=== PATIENT | female | born 1955 | race Two or more races ===

== ENCOUNTER 2023-11-10 12:56 | Emergency (ER) | payer MEDICARE ==
--- NOTE | 2023-11-10 13:06 | ED ---
General Adult HPI - General Stated complaint: Mental health eval Time Seen by Provider: 11/10/23 13:00 Source: patient, RN notes reviewed, old records reviewed - History of Present Illness Initial comments: This is a 68-year-old female who presents to the emergency department because she made some suicidal comments according to staff at the [facility] home. Patient states she does not recall saying that today she states she may have said that months ago but not today. Patient's 2 months ago and she states she has been depressed but she does not feel like she herself because she has children. But according to the paramedics they were told that she made comments about jumping out of the window today. Patient denies any physical complaints today. Patient denies any fever chills or cough patient denies headache patient has numbness weakness. Patient has any chest pain palpitations or difficulty breathing. Patient has any abdominal pain. - Related Data Home Medications Medication Instructions Recorded Confirmed Atorvastatin [Lipitor] 20 mg PO HS 11/10/23 11/10/23 FLUoxetine HCL [PROzac] 20 mg PO DAILY 11/10/23 11/10/23 Losartan Potassium [Cozaar] 100 mg PO DAILY 11/10/23 11/10/23 Mirtazapine [Remeron] 30 mg PO HS 11/10/23 11/10/23 OLANZapine [ZyPREXA] 2.5 mg PO HS 11/10/23 11/10/23 Venlafaxine HCl [Effexor XR] 150 mg PO DAILY 11/10/23 11/10/23 Allergies Allergy/AdvReac Type Severity Reaction Status Date / Time No Known Allergies Allergy Verified 11/10/23 17:21 Review of Systems ROS Statement: Those systems with pertinent positive or pertinent negative responses have been documented in the HPI. ROS Other: All systems not noted in ROS Statement are negative. General Exam - General Exam Comments Initial Comments: GENERAL: Patient is well-developed and well-nourished. Patient is nontoxic and well- hydrated and is in no acute distress. ENT: Neck is soft and supple. No significant lymphadenopathy is noted. Oropharynx is clear. Moist mucous membranes. Neck has full range of motion without eliciting any pain. EYES: The sclera were anicteric and conjunctiva were pink and moist. Extraocular movements were intact and pupils were equal round and reactive to light. Ey elids were unremarkable. PULMONARY: Unlabored respirations. Good breath sounds bilaterally. No audible rales rhonchi or wheezing was noted. CARDIOVASCULAR: There is a regular rate and rhythm without any murmurs gallops or rubs. ABDOMEN: Soft and nontender with normal bowel sounds. SKIN: Skin is clear with no lesions or rashes and otherwise unremarkable. NEUROLOGIC: Patient is alert and oriented x3. Cranial nerves II through XII are grossly intact. Motor and sensory are also intact. Normal speech, volume and content. Symmetrical smile. MUSCULOSKELETAL: Normal extremities with adequate strength and full range of motion. No lower extremity swelling or edema. No calf tenderness. LYMPHATICS: No significant lymphadenopathy is noted PSYCHIATRIC: Patient denies any suicidal ideations however EMS states that she made comments to people at the [facility] Course Vital Signs 11/10/23 13:19 Temperature 98.4 F Pulse Rate 84 Respiratory 12 Rate Blood Pressure 135/80 O2 Sat by Pulse 97 Oximetry Medical Decision Making - Medical Decision Making Was pt. sent in by a medical professional or institution (, PA, DIESEL ENGINE TESTER, urgent care, hospital, or longterm...) When possible be specific @ -No Did you speak to anyone other than the patient for history (EMS, parent, family, police, friend...)? What history was obtained from this source @ -EPS gave us the report from the scene and what people there were saying. Did you review nursing and triage notes (agree or disagree)? Why? @ -I reviewed and agree with nursing and triage notes Were old charts reviewed (outside hosp., previous admission, EMS record, old EKG, old radiological studies, urgent care reports/EKG's, longterm records)? Report findings @ -No old charts were reviewed Differential Diagnosis (chest pain, altered mental status, abdominal pain women, abdominal pain men, vaginal bleeding, weakness, fever, dyspnea, syncope, headache, dizziness, GI bleed, back pain, seizure, CVA, palpatations, mental health, musculoskeletal)? @ -Differential Mental Health Depression, anxiety, bipolar, psychosis, schizophrenia, borderline personality, situational depression, adjustment disorder, behavioral disorder, brain tumor, malingering, substance abuse, encephalopathy, medication reaction, dementia, hypothyroidism, degenerative neurologic disorder, lupus.... This is not meant to be all-inclusive list EKG interpreted by me (3pts min.). @ -As above X-rays interpreted by me (1pt min.). @ -None done CT interpreted by me (1pt min.). @ -None done U/S interpreted by me (1pt. min.). @ -None done What testing was considered but not performed or refused? (CT, X-rays, U/S, labs)? Why? @ -None What meds were considered but not given or refused? Why? @ -None Did you discuss the management of the patient with other professionals (professionals i.e. , PA, DIESEL ENGINE TESTER, lab, RT, psych nurse, social sciences instructor, lead pl sql developer, t eacher, equal opportunity officer, family service caseworker)? Give summary @ -EPS evaluated the patient and in consultation with the psychiatrist determined the patient go home. Daughter showed up and was in agreement with this plan as was the patient. Was smoking cessation discussed for >3mins.? @ -No Was critical care preformed (if so, how long)? @ -No Were there social determinants of health that impacted care today? How? (Homelessness, low income, unemployed, alcoholism, drug addiction, transportation, low edu. Level, literacy, decrease access to med. care, assisted, rehab)? @ -No Was there de-escalation of care discussed even if they declined (Discuss DNR or withdrawal of care, Hospice)? DNR status @ -No What co-morbidities impacted this encounter? (DM, HTN, Smoking, COPD, CAD, Cancer, CVA, ARF, Chemo, Hep., AIDS, mental health diagnosis, sleep apnea, morbid obesity)? @ -None Was patient admitted / discharged? Hospital course, mention meds given and route, prescriptions, significant lab abnormalities, going to OR and other pertinent info. @ -Patient denied being suicidal at all time she was here and EPS the daughter and the psychiatrist all were in agreement with the patient being discharged home Undiagnosed new problem with uncertain prognosis? @ -No Drug Therapy requiring intensive monitoring for toxicity (Heparin, Nitro, Insulin, Cardizem)? @ -No Were any procedures done? @ -No Diagnosis/symptom? @ -Situational depression Acute, or Chronic, or Acute on Chronic? @ -Acute Uncomplicated (without systemic symptoms) or Complicated (systemic symptoms)? @ -Uncomplicated Side effects of treatment? @ -No Exacerbation, Progression, or Severe Exacerbation? @ -No Poses a threat to life or bodily function? How? (Chest pain, [place], [place], pneumonia, PE, COPD, DKA, ARF, appy, cholecystitis, CVA, Diverticulitis, Homicidal, Suicidal, threat to staff... and all critical care pts) @ -No - Lab Data Lab Results 11/10/23 11/10/23 Range/Units 14:40 14:40 Urine Color Colorless Urine Appearance Clear (Clear) Urine pH 7.5 (5.0-8.0) Ur Specific [place] 1.015 (1.001-1.035) Urine Protein Negative (Negative) Urine Glucose (UA) Negative (Negative) Urine Ketones Negative (Negative) Urine Blood Negative (Negative) Urine Nitrite Negative (Negative) Urine Bilirubin Negative (Negative) Urine Urobilinogen <2.0 (<2.0) mg/dL Ur Leukocyte Esterase Trace H (Negative) Urine RBC 1 (0-5) /hpf Urine WBC 4 (0-5) /hpf Ur Squamous Epith Cells <1 (0-4) /hpf Urine Mucus Rare H (None) /hpf Urine Opiates Screen Not Detected (NotDetected) Ur Oxycodone Screen Not Detected (NotDetected) Urine Methadone Screen Not Detected (NotDetected) Ur Barbiturates Screen Not Detected (NotDetected) U Tricyclic Antidepress Not Detected (NotDetected) Ur Phencyclidine Scrn Not Detected (NotDetected) Ur Amphetamines Screen Not Detected (NotDetected) U Methamphetamines Scrn Not Detected (NotDetected) U Benzodiazepines Scrn Not Detected (NotDetected) Urine Cocaine Screen Not Detected (NotDetected) U Marijuana (THC) Screen Not Detected (NotDetected) Disposition Clinical Impression: Situational depression Disposition: HOME SELF-CARE Condition: Good Instructions (If sedation given, give patient instructions): Depression (ED) Is patient prescribed a controlled substance at d/c from ED?: No Referrals: None,Stated [REFERRING] - 1-2 days Time of Disposition: 18:22
[2023-11-10 13:24] VITALS: TEMP 98.4
[2023-11-10 14:54] LABS: Amphetamine Screen,Urine Not Detected (NotDetected); Barbiturate Screen,Urine Not Detected (NotDetected); Benzodiazepines Screen,Urine Not Detected (NotDetected); Cocaine Screen,Urine Not Detected (NotDetected); Methadone Screen, Urine Not Detected (NotDetected); Opiate Screen,Urine Not Detected (NotDetected); Oxycodone Screen, Urine Not Detected (NotDetected); Phencyclidine Screen,Urine Not Detected (NotDetected); Tricyclic Antidepressant,Urine Not Detected (NotDetected); Urn Cannabinoid Scrn Not Detected (NotDetected)
[2023-11-10 16:50] LABS: Appearance,Urine Clear (Clear); Bilirubin,Urine Negative (Negative); Blood,Urine Negative (Negative); Color,Urine Colorless; Glucose,Urine (UA) Negative (Negative); Ketones,Urine Negative (Negative); Leukocyte Esterase,Urine Trace (Negative); Mucus,Urine Rare /hpf; Nitrite,Urine Negative (Negative); PH, Urine 7.5 (5.0-8.0); Protein,Urine Negative (Negative); RBC,Urine 1 /hpf (0-5); Specific Gravity,Urine 1.015 (1.001-1.035); Squamous Epithelial Cell,Urine <1 /hpf (0-4); Urobilinogen,Urine <2.0 mg/dL (<2.0); WBC,Urine 4 /hpf (0-5)
[2023-11-10 18:45] VITALS: BP 178/94; PULSE 103; RESP 14
== END 2023-11-10 18:37 | disposition home or self-care (01) ==
LOC: EC 12:56
DX: F43.21 Adjustment disorder with depressed mood (principal)
CPT/HCPCS: 80306; 81001; 82075; 99285

== ENCOUNTER 2024-04-22 20:40 | Observation (INO) | payer MEDICARE ==
--- NOTE | 2024-04-22 21:17 | ED ---
Syncope HPI - General Chief Complaint: Syncope Stated Complaint: AMS Time Seen by Provider: 04/22/24 20:43 Source: EMS, RN notes reviewed, old records reviewed Mode of arrival: EMS Limitations: altered mental status - History of Present Illness Initial Comments: This is a 69-year-old female to the ER for evaluation of altered mental status with syncopal versus near syncopal event in the shower today. Patient is minimally responsive on arrival to the ER per staff symptoms have been improving. She presents by EMS history obtained from EMS and chart MD Complaint: loss of consciousness, felt faint, almost passed out, collapsed -: hour(s) Prodromal Symptoms: lightheaded Witnessed: yes - by bystander Injuries Sustained Associated with Event: None Current Symptoms: lightheaded History: previous syncopal episode Context: during exertion (During a shower) Treatments Prior to Arrival: none - Related Data Home Medications Medication Instructions Recorded Confirmed Atorvastatin [Lipitor] 20 mg PO HS 11/10/23 04/23/24 Losartan Potassium [Cozaar] 100 mg PO DAILY 11/10/23 04/23/24 Mirtazapine [Remeron] 30 mg PO HS 11/10/23 04/23/24 Venlafaxine HCl [Effexor XR] 150 mg PO DAILY 11/10/23 04/23/24 Cyanocobalamin (Vitamin B-12) 1,000 mcg PO DAILY 04/23/24 04/23/24 [Vitamin B-12] Docusate [Colace] 100 mg PO DAILY 04/23/24 04/23/24 LORazepam [Ativan] 1 mg PO BID PRN 04/23/24 04/23/24 Melatonin 5 mg PO HS 04/23/24 04/23/24 OLANZapine [ZyPREXA] 5 mg PO HS 04/23/24 04/23/24 Venlafaxine HCl ER [Effexor XR] 75 mg PO DAILY 04/23/24 04/23/24 Allergies Allergy/AdvReac Type Severity Reaction Status Date / Time No Known Allergies Allergy Verified 04/23/24 07:23 Review of Systems ROS Statement: Those systems with pertinent positive or pertinent negative responses have been documented in the HPI. ROS Other: All systems not noted in ROS Statement are negative. Past Medical History Past Medical History: Hypertension Additional Past Medical History / Comment(s): Aphasia Past Psychological History: Anxiety, Depression General Exam General appearance: alert, in no apparent distress Head exam: Present: atraumatic, normocephalic, normal inspection Eye exam: Present: normal appearance, PERRL, EOMI. Absent: scleral icterus, conjunctival injection, periorbital swelling ENT exam: Present: normal exam, mucous membranes moist Neck exam: Present: normal inspection. Absent: tenderness, meningismus, lymphadenopathy Respiratory exam: Present: normal lung sounds bilaterally. Absent: respiratory distress, wheezes, rales, rhonchi, stridor Cardiovascular Exam: Present: regular rate, normal rhythm, normal heart sounds. Absent: systolic murmur, diastolic murmur, rubs, gallop, clicks GI/Abdominal exam: Present: soft, normal bowel sounds. Absent: distended, tende rness, guarding, rebound, rigid Extremities exam: Present: normal inspection, full ROM, normal capillary refill. Absent: tenderness, pedal edema, joint swelling, calf tenderness Back exam: Present: normal inspection Neurological exam: Present: alert, oriented X3, CN II-XII intact Psychiatric exam: Present: normal affect, normal mood Skin exam: Present: warm, dry, intact, normal color. Absent: rash Course Vital Signs 04/22/24 04/23/24 04/23/24 20:45 00:18 02:05 Temperature 97.8 F Pulse Rate 87 79 75 Respiratory 16 16 16 Rate Blood Pressure 149/82 133/74 105/61 O2 Sat by Pulse 95 95 95 Oximetry 04/23/24 04/23/24 04/23/24 06:56 07:49 08:30 Temperature 98.1 F 98.5 F Pulse Rate 76 83 77 Respiratory 20 15 16 Rate Blood Pressure 148/76 158/83 146/77 O2 Sat by Pulse 96 95 97 Oximetry 04/23/24 17:01 Temperature 98.4 F Pulse Rate 76 Respiratory 16 Rate Blood Pressure 166/82 O2 Sat by Pulse 98 Oximetry - Reevaluation(s) Reevaluation #1: 04/22/24 21:26 Medical record is reviewed Reevaluation #2: 04/22/24 21:26 Symptoms sinus a Reevaluation #3: 04/22/24 22:41 Patient is informed of results and questions answered Reevaluation #4: Was pt. sent in by a medical professional or institution (, PA, VIDEO GAME DESIGNER, urgent care, hospital, or shelter...) When possible be specific @ -no Did you speak to anyone other than the patient for history (EMS, parent, family, police, friend...)? What history was obtained from this source @ -no Did you review nursing and triage notes (agree or disagree)? Why? @ -agree Are old charts reviewed (outside hosp., previous admission, EMS record, old EKG, old radiological studies, urgent care reports/EKG's, shelter records)? Report findings @ -yes Differential Diagnosis (chest pain, altered mental status, abdominal pain women, abdominal pain men, vaginal bleeding, weakness, fever, dyspnea, syncope, headache, dizziness, GI bleed, back pain, seizure, CVA, palpatations, mental health, musculoskeletal)? @ -prior EKG interpreted by me (3pts min.). @ -yes X-rays interpreted by me (1pt min.). @ -yes negative for acute disease CT interpreted by me (1pt min.). @ -no U/S interpreted by me (1pt. min.). @ -no What testing was considered but not performed or refused? (CT, X-rays, U/S, labs)? Why? @ -none What meds were considered but not given or refused? Why? @ -none Did you discuss the management of the patient with other professionals (professionals i.e. CARLITOS Davison, VIDEO GAME DESIGNER, lab, RT, psych nurse, vp digital marketing social media and crm, engineering clerk, teacher, professional security officer, case supervisor)? Give summary @ -no Was smoking cessation discussed for >3mins.? @ -no Was critical care preformed (if so, how long)? @ -no Were there social determinants of health that impacted care today? How? (Homelessness, low income, unemployed, alcoholism, drug addiction, transportation, low edu. Level, literacy, decrease access to med. care, group home, rehab)? @ -none Was there de-escalation of care discussed even if they declined (Discuss DNR or withdrawal of care, Hospice)? DNR status @ -no What co-morbidities impacted this encounter? (DM, HTN, Smoking, COPD, CAD, Cancer, CVA, ARF, Chemo, Hep., AIDS, mental health diagnosis, sleep apnea, morbid obesity)? @ -none Was patient admitted / discharged? Hospital course, mention meds given and route, prescriptions, significant lab abnormalities, going to OR and other pert inent info. @ - 69 Male who will be admitted for psychiatric evaluation secondary to syncope vasovagal syncope history of syncope Admitted syncope Undiagnosed new problem with uncertain prognosis? @ -no Drug Therapy requiring intensive monitoring for toxicity (Heparin, Nitro, Insulin, Cardizem)? @ -no Were any procedures done? @ -no Diagnosis/symptom? @ - Acute, or Chronic, or Acute on Chronic? @ -Acute Uncomplicated (without systemic symptoms) or Complicated (systemic symptoms)? @ -Complicated Side effects of treatment? @ -no Exacerbation, Progression, or Severe Exacerbation? @ -exacerbation Poses a threat to life or bodily function? How? (Chest pain, [place], [place], pneumonia, PE, COPD, DKA, ARF, appy, cholecystitis, CVA, Diverticulitis, Homicidal, Suicidal, threat to staff... and all critical care pts) @ -yes Reevaluation #5: Differential Altered Mental Status: Hypoglycemia, DKA, hypercapnia, ETOH, overdose, CO poisoning, trauma, myxedema coma, HTN encephalopathy, infection, encephalitis, psychosis, intercranial hemorrhage, hepatic encephalopathy, meningitis, CVA, this is not meant to be an all-inclusive list - Consultations Consultation #1: Spoke with admitting physicians who agreed to admit this patient EKG Findings - EKG Comments: EKG Findings:: EKG Is sinus 88 TX 194 QRS 84 QTc 423 - EKG Results: EKG: interpreted by RACHID Medical Decision Making - Medical Decision Making 69 Male who will be admitted for psychiatric evaluation secondary to syncope vasovagal syncope history of syncope - Lab Data Result diagrams: 04/23/24 08:33 04/23/24 08:33 Lab Results 04/22/24 04/22/24 04/22/24 Range/Units 21:20 21:20 21:20 WBC 8.0 (3.8-10.6) k/uL RBC 3.85 (3.80-5.40) m/uL Hgb 11.6 (11.4-16.0) gm/dL Hct 35.7 (34.0-46.0) % MCV 92.5 (80.0-100.0) fL MCH 30.2 (25.0-35.0) pg MCHC 32.6 (31.0-37.0) g/dL RDW 12.5 (11.5-15.5) % Plt Count 257 (150-450) k/uL MPV 7.3 Neutrophils % 69 % Lymphocytes % 18 % Monocytes % 6 % Eosinophils % 5 % Basophils % 0 % Neutrophils # 5.6 (1.3-7.7) k/uL Lymphocytes # 1.5 (1.0-4.8) k/uL Monocytes # 0.5 (0-1.0) k/uL Eosinophils # 0.4 (0-0.7) k/uL Basophils # 0.0 (0-0.2) k/uL PT 10.6 (10.0-12.5) sec INR 1.0 (<1.2) APTT 22.3 (22.0-30.0) sec Sodium 137 (137-145) mmol/L Potassium 3.7 (3.5-5.1) mmol/L Chloride 109 H (98-107) mmol/L Carbon Dioxide 25 (22-30) mmol/L Anion Gap 3 mmol/L BUN 20 H (7-17) mg/dL Creatinine 0.94 (0.52-1.04) mg/dL Est GFR (CKD-EPI)AfAm 71 (>60 ml/min/1.73 sqM) Est GFR (CKD-EPI)NonAf 61 (>60 ml/min/1.73 sqM) Glucose 119 H (74-99) mg/dL Plasma Lactic Acid Price (0.7-2.0) mmol/L Calcium 8.7 (8.4-10.2) mg/dL Phosphorus 2.9 (2.5-4.5) mg/dL Magnesium 1.8 (1.6-2.3) mg/dL Total Bilirubin 0.4 (0.2-1.3) mg/dL AST 24 (14-36) U/L ALT 19 (4-34) U/L Alkaline Phosphatase 107 (38-126) U/L Troponin I (0.000-0.034) ng/mL NT-Pro-B Natriuret Pep 21 pg/mL Total Protein 6.0 L (6.3-8.2) g/dL Albumin 3.6 (3.5-5.0) g/dL 04/22/24 04/22/24 Range/Units 21:20 21:20 WBC (3.8-10.6) k/uL RBC (3.80-5.40) m/uL Hgb (11.4-16.0) gm/dL Hct (34.0-46.0) % MCV (80.0-100.0) fL MCH (25.0-35.0) pg MCHC (31.0-37.0) g/dL RDW (11.5-15.5) % Plt Count (150-450) k/uL MPV Neutrophils % % Lymphocytes % % Monocytes % % Eosinophils % % Basophils % % Neutrophils # (1.3-7.7) k/uL Lymphocytes # (1.0-4.8) k/uL Monocytes # (0-1.0) k/uL Eosinophils # (0-0.7) k/uL Basophils # (0-0.2) k/uL PT (10.0-12.5) sec INR (<1.2) APTT (22.0-30.0) sec Sodium (137-145) mmol/L Potassium (3.5-5.1) mmol/L Chloride (98-107) mmol/L Carbon Dioxide (22-30) mmol/L Anion Gap mmol/L BUN (7-17) mg/dL Creatinine (0.52-1.04) mg/dL Est GFR (CKD-EPI)AfAm (>60 ml/min/1.73 sqM) Est GFR (CKD-EPI)NonAf (>60 ml/min/1.73 sqM) Glucose (74-99) mg/dL Plasma Lactic Acid Price 1.7 (0.7-2.0) mmol/L Calcium (8.4-10.2) mg/dL Phosphorus (2.5-4.5) mg/dL Magnesium (1.6-2.3) mg/dL Total Bilirubin (0.2-1.3) mg/dL AST (14-36) U/L ALT (4-34) U/L Alkaline Phosphatase (38-126) U/L Troponin I <0.012 (0.000-0.034) ng/mL NT-Pro-B Natriuret Pep pg/mL Total Protein (6.3-8.2) g/dL Albumin (3.5-5.0) g/dL - Radiology Data Radiology results: report reviewed (CT brain is negative for acute disease), image reviewed Disposition Clinical Impression: Syncope due to orthostatic hypotension, Vasovagal syncope, Dehydration, AMS (altered mental status), Weakness, Psychosis Disposition: ADMITTED IP TO THIS HOSP Condition: Fair Is patient prescribed a controlled substance at d/c from ED?: No
[2024-04-22 21:50] LABS: Basophils % (A) 0 %; Eosinophils # (A) 0.4 k/uL (0-0.7); Eosinophils % (A) 5 %; HCT 35.7 % (34.0-46.0); HGB 11.6 gm/dL (11.4-16.0); Lymphocytes # (A) 1.5 k/uL (1.0-4.8); Lymphocytes % (A) 18 %; MCH 30.2 pg (25.0-35.0); MCHC 32.6 g/dL (31.0-37.0); MCV 92.5 fL (80.0-100.0); Mean Platelet Volume 7.3; Monocytes # (A) 0.5 k/uL (0-1.0); Monocytes % (A) 6 %; Neutrophils # (A) 5.6 k/uL (1.3-7.7); Neutrophils % (A) 69 %; Platelet Count 257 k/uL (150-450); RBC 3.85 m/uL (3.80-5.40); RDW 12.5 % (11.5-15.5)
[2024-04-22 22:05] LABS: ALT 19 U/L (4-34); AST 24 U/L (14-36); African American GFR (CKD) 71 (>60 ml/min/1.73 sqM); Albumin 3.6 g/dL (3.5-5.0); Alkaline Phosphatase 107 U/L (38-126); Anion Gap 3 mmol/L; Blood Urea Nitrogen 20 mg/dL (7-17); Calcium 8.7 mg/dL (8.4-10.2); Carbon Dioxide 25 mmol/L (22-30); Chloride 109 mmol/L (98-107); Glucose 119 mg/dL (74-99); Magnesium 1.8 mg/dL (1.6-2.3); Non-African American GFR(CKD) 61 (>60 ml/min/1.73 sqM); Phosphorus 2.9 mg/dL (2.5-4.5); Potassium 3.7 mmol/L (3.5-5.1); Sodium 137 mmol/L (137-145); Total Bilirubin 0.4 mg/dL (0.2-1.3)
[2024-04-22 22:12] LABS: NT-Pro-B-Type Natriuretic Pept 21 pg/mL; Partial Thromboplastin Time 22.3 sec (22.0-30.0); Prothrombin Time 10.6 sec (10.0-12.5)
[2024-04-22] MEDS: SODIUM CHLORIDE 0.9% 1,000 ML IV STA (22:15)
[2024-04-22] MEDS ORDERED: MORPHINE SULFATE 4 MG/ML SYRINGE IV PRN (22:35)
[2024-04-22] MEDS ORDERED: ONDANSETRON 4 MG/2 ML VIAL IVP PRN (22:35)
[2024-04-22] MEDS ORDERED: NALOXONE 0.4 MG/ML 1 ML VIAL IV PRN (22:35)
--- NOTE | 2024-04-22 23:53 | CT ---
EXAM: CT Head Without Intravenous Contrast CLINICAL HISTORY: weakness TECHNIQUE: Axial computed tomography images of the head/brain without intravenous contrast. CTDI is 49.1 mGy and DLP is 1121 mGy-cm. This CT exam was performed using one or more of the following dose reduction techniques: automated exposure control, adjustment of the mA and/or kV according to patient size, and/or use of iterative reconstruction technique. COMPARISON: No relevant prior studies available. FINDINGS: Brain: Unremarkable. No acute intracranial hemorrhage, edema or abnormal mass-effect. Ventricles: Unremarkable. No ventriculomegaly. Bones/joints: Unremarkable. No acute fracture. Soft tissues: Unremarkable. Sinuses: Unremarkable as visualized. No acute sinusitis. Mastoid air cells: Unremarkable as visualized. No mastoid effusion. IMPRESSION: No acute or focal intracranial findings.
[2024-04-23] MEDS: SODIUM CHLORIDE 0.9% 1,000 ML IV SCH (00:16)
[2024-04-23] MEDS: PANTOPRAZOLE 40 MG/10 ML VIAL IV SCH (08:30)
[2024-04-23 08:40] VITALS: RESP 16
[2024-04-23 09:20] LABS: Basophils % (A) 0 %; Eosinophils # (A) 0.3 k/uL (0-0.7); Eosinophils % (A) 3 %; HCT 38.3 % (34.0-46.0); HGB 12.5 gm/dL (11.4-16.0); Lymphocytes # (A) 1.2 k/uL (1.0-4.8); Lymphocytes % (A) 14 %; MCH 30.2 pg (25.0-35.0); MCHC 32.7 g/dL (31.0-37.0); MCV 92.4 fL (80.0-100.0); Mean Platelet Volume 7.7; Monocytes # (A) 0.3 k/uL (0-1.0); Monocytes % (A) 3 %; Neutrophils # (A) 6.8 k/uL (1.3-7.7); Neutrophils % (A) 79 %; Platelet Count 282 k/uL (150-450); RBC 4.15 m/uL (3.80-5.40); WBC 8.7 k/uL (3.8-10.6)
[2024-04-23 09:41] LABS: ALT 18 U/L (4-34); AST 22 U/L (14-36); African American GFR (CKD) 85 (>60 ml/min/1.73 sqM); Albumin 3.5 g/dL (3.5-5.0); Alkaline Phosphatase 101 U/L (38-126); Anion Gap 5 mmol/L; Blood Urea Nitrogen 17 mg/dL (7-17); Calcium 8.7 mg/dL (8.4-10.2); Carbon Dioxide 26 mmol/L (22-30); Chloride 110 mmol/L (98-107); Glucose 80 mg/dL (74-99); Lipase 71 U/L (23-300); Non-African American GFR(CKD) 74 (>60 ml/min/1.73 sqM); Phosphorus 3.8 mg/dL (2.5-4.5); Potassium 4.2 mmol/L (3.5-5.1); Sodium 141 mmol/L (137-145); Total Bilirubin 0.5 mg/dL (0.2-1.3)
[2024-04-23 09:50] LABS: Appearance,Urine Cloudy (Clear); Bacteria,Urine Rare /hpf; Bilirubin,Urine Negative (Negative); Blood,Urine Trace (Negative); Color,Urine Colorless; Glucose,Urine (UA) Negative (Negative); Ketones,Urine Negative (Negative); Leukocyte Esterase,Urine Large (Negative); Mucus,Urine Rare /hpf; Nitrite,Urine Negative (Negative); PH, Urine 6.5 (5.0-8.0); Protein,Urine Trace (Negative); RBC,Urine 11 /hpf (0-5); Specific Gravity,Urine 1.015 (1.001-1.035); Squamous Epithelial Cell,Urine 4 /hpf (0-4); Urobilinogen,Urine <2.0 mg/dL (<2.0); WBC,Urine 168 /hpf (0-5)
--- NOTE | 2024-04-23 11:08 | CA ---
Transthoracic Echo Report Name: Lesa Corea Age: 69 Gender: F : 1955 Exam Date: 04/23/2024 09:05 Exam Location: [facility] Ht (in): 64 Wt (lb): 155 Ordering Physician: Debbie Middleton Attending/Referring Phys: [id number], Emi Director Service Tori Perla RDCS Procedure CPT: Indications: Syncope Cardiac Hx: Technical Quality: Fair Contrast 1: Total Dose (mL): Contrast 2: Total Dose (mL): MEASUREMENTS (Male / Female) Normal Values 2D ECHO LV Diastolic Diameter PLAX 5.0 cm 4.2 - 5.9 / 3.9 - 5.3 cm LV Systolic Diameter PLAX 2.7 cm IVS Diastolic Thickness 0.9 cm 0.6 - 1.0 / 0.6 - 0.9 cm LVPW Diastolic Thickness 1.0 cm 0.6 - 1.0 / 0.6 - 0.9 cm LV Relative Wall Thickness 0.4 RV Internal Dim ED PLAX 1.9 cm LA Systolic Diameter LX 3.4 cm 3.0 - 4.0 / 2.7 - 3.8 cm LV Diastolic Volume MOD BP 60.2 cm??? 67 - 155 / 56 - 104 cm??? LV Systolic Volume MOD BP 20.2 cm??? - 58 / 19 - 49 cm??? LV Ejection Fraction MOD BP 66.5 % >= 55 % LV Cardiac Index MOD BP 1623.2 cm???/min???m??? LV Diastolic Volume MOD 4C 63.4 cm??? LV Systolic Volume MOD 4C 18.4 cm??? LV Ejection Fraction MOD 4C 71.0 % LV Cardiac Index MOD 4C 1828.4 cm???/min???m??? LV Diastolic Length 4C 7.0 cm LV Systolic Length 4C 4.7 cm LV Diastolic Volume MOD 2C 54.6 cm??? LV Systolic Volume MOD 2C 20.5 cm??? LV Ejection Fraction MOD 2C 62.4 % LV Cardiac Index MOD 2C 1385.6 cm???/min???m??? LV Diastolic Length 2C 6.5 cm LV Systolic Length 2C 5.1 cm LA Volume 49.7 cm??? 18 - 58 / 22 - 52 cm??? LA Volume Index 27.6 cm???/m??? 16 - 28 cm???/m??? M-MODE Aortic Root Diameter MM 2.8 cm LA Systolic Diameter MM 2.9 cm LA Ao Ratio MM 1.0 AV Cusp Separation MM 2.0 cm DOPPLER MV Area PHT 2.7 cm??? Mitral E Point Velocity 61.3 cm/s Mitral A Point Velocity 79.0 cm/s Mitral E to A Ratio 0.8 MV Deceleration Time 282.0 ms TR Peak Velocity 200.9 cm/s TR Peak Gradient 16.1 mmHg FINDINGS Left Ventricle Left ventricular ejection fraction is estimated at 55-60 %. Normal Left ventricular size, wall thickness, systolic function with no obvious regional wall motion abnormalities. Right Ventricle Normal right ventricular size and function. Right ventricular systolic pressure within normal limits. Right Atrium Mild right atrial dilatation. Left Atrium Mild left atrial dilatation. Mitral Valve Structurally normal mitral valve. Mild mitral regurgitation. No mitral stenosis. Aortic Valve Trileaflet aortic valve. Trace aortic regurgitation. No aortic stenosis. Tricuspid Valve Structurally normal tricuspid valve. Mild tricuspid regurgitation. No tricuspid stenosis. Pulmonic Valve Structurally normal pulmonic valve. Trace pulmonic regurgitation. No pulmonic stenosis. Pericardium No pericardial or pleural effusion. Aorta Normal size aortic root and proximal ascending aorta. CONCLUSIONS Diagnosis: Syncope Preserved LV size and systolic function, no regional wall motion abnormalities Normal RV size and function Mild biatrial enlargement No significant valvular abnormalities Previewed by: Dr. Andry Bean MD (Electronically Signed) Final Date: 23 April 2024 11:07
[2024-04-23] MEDS ORDERED: LORazepam 1 MG TAB PO PRN (11:29)
[2024-04-23] MEDS: LOSARTAN 50 MG TAB PO SCH (12:31)
[2024-04-23] MEDS: DOCUSATE 100 MG CAP PO SCH (12:31)
[2024-04-23] MEDS: VENLAFAXINE HCL ER 150 MG CAP PO SCH (12:31)
[2024-04-23] MEDS: VENLAFAXINE HCL ER 75 MG CAP PO SCH (12:31)
--- NOTE | 2024-04-23 12:32 | P.CRDCN ---
History of Present Illness Consult date: 04/23/24 Reason for Consult (text): Syncope History of present illness: HISTORY OF PRESENT ILLNESS: This is a 69-year-old female with past medical history significant for hypertension, hyperlipidemia, and mitral regurgitation. Patient follows in the office with Dr. Hernandez. We have been asked to see this patient in consultation for syncope. Patient was examined at the bedside in the emergency room. Patient was brought to the hospital for evaluation of altered mental status with syncopal versus near syncopal episode in the shower today. Patient was minimally responsive during the encounter and quite somnolent. She states she had an episode of vomiting yesterday. She denies any smoking history, history of seizures or strokes. She denies any chest pain, shortness of breath, fluttering in her chest, lower extremity swelling, or fevers. DIAGNOSTICS: - EKG reveals sinus rhythm, rate 88 bpm - Chest xray not done. Head CT was unremarkable. - Laboratory data: Troponin negative. - Current home cardiac medications include Lipitor 20 mg p.o. at bedtime, Cozaar 100 mg daily Most recent echocardiogram in July 2021 showed ejection fraction of 55%, mild MR, mild TR REVIEW OF SYSTEMS: As per HPI above. All other systems negative. PHYSICAL EXAM: VITAL SIGNS: Reviewed. GENERAL: Well-developed in no acute distress. HEENT: Head is normocephalic. Pupils are equal, round. Sclerae anicteric. Mucous membranes of the mouth are moist. Neck supple. No JVD or thyromegaly LUNGS: Respirations even and unlabored. Some crackles bilaterally. HEART: Regular rate and rhythm. S1-S2 heard. Soft 1 out of 6 systolic murmur heard at the base, holosystolic murmur at apex. ABDOMEN: Soft. Nontender to palpation. EXTREMITIES: Normal range of motion. No clubbing or cyanosis. Peripheral pulses intact. No notable lower extremity edema. NEUROLOGIC: Awake and alert. Oriented x 3. ASSESSMENT: Syncopal versus near syncopal episode Acute encephalopathy, possibly due to polypharmacy History of psychosis PLAN: Ordered echocardiogram which showed EF 55 to 60%, preserved LV size and systolic function, no significant valvular abnormalities Obtain orthostatic vital signs if possible Monitor vital signs, electrolytes and renal function Further recommendations to follow based upon clinical course Thank you kindly for this consultation. Past Medical History Past Medical History: Hypertension Additional Past Medical History / Comment(s): Aphasia Past Psychological History: Anxiety, Depression Medications and Allergies Home Medications Medication Instructions Recorded Confirmed Type Atorvastatin [Lipitor] 20 mg PO HS 11/10/23 04/23/24 History FLUoxetine HCL [PROzac] 20 mg PO DAILY 11/10/23 04/23/24 History Losartan Potassium [Cozaar] 100 mg PO DAILY 11/10/23 04/23/24 History Mirtazapine [Remeron] 30 mg PO HS 11/10/23 04/23/24 History Venlafaxine HCl [Effexor XR] 150 mg PO DAILY 11/10/23 04/23/24 History Cyanocobalamin (Vitamin B-12) 1,000 mcg PO DAILY 04/23/24 04/23/24 History [Vitamin B-12] Docusate [Colace] 100 mg PO DAILY 04/23/24 04/23/24 History LORazepam [Ativan] 1 mg PO BID PRN 04/23/24 04/23/24 History Melatonin 5 mg PO HS 04/23/24 04/23/24 History OLANZapine [ZyPREXA] 5 mg PO HS 04/23/24 04/23/24 History Venlafaxine HCl ER [Effexor Xr] 75 mg PO DAILY 04/23/24 04/23/24 History Allergies Allergy/AdvReac Type Severity Reaction Status Date / Time No Known Allergies Allergy Verified 04/23/24 07:23 Physical Exam Vitals: Vital Signs Temp Pulse Resp BP Pulse Ox 04/23/24 08:30 77 16 146/77 97 04/23/24 07:49 98.5 F 83 15 158/83 95 04/23/24 06:56 98.1 F 76 20 148/76 96 04/23/24 02:05 75 16 105/61 95 04/23/24 00:18 79 16 133/74 95 04/22/24 20:45 97.8 F 87 16 149/82 95 Intake and Output 04/22/24 04/23/24 04/23/24 22:59 06:59 14:59 Other: Weight 70.307 kg Results 04/23/24 08:33 04/23/24 08:33 Cardiac Enzymes 04/22/24 04/22/24 Range/Units 21:20 21:20 AST 24 (14-36) U/L Troponin I <0.012 (0.000-0.034) ng/mL Coagulation 04/22/24 Range/Units 21:20 PT 10.6 (10.0-12.5) sec APTT 22.3 (22.0-30.0) sec CBC 04/22/24 Range/Units 21:20 WBC 8.0 (3.8-10.6) k/uL RBC 3.85 (3.80-5.40) m/uL Hgb 11.6 (11.4-16.0) gm/dL Hct 35.7 (34.0-46.0) % Plt Count 257 (150-450) k/uL Comprehensive Metabolic Panel 04/22/24 Range/Units 21:20 Sodium 137 (137-145) mmol/L Potassium 3.7 (3.5-5.1) mmol/L Chloride 109 H (98-107) mmol/L Carbon Dioxide 25 (22-30) mmol/L BUN 20 H (7-17) mg/dL Creatinine 0.94 (0.52-1.04) mg/dL Glucose 119 H (74-99) mg/dL Calcium 8.7 (8.4-10.2) mg/dL AST 24 (14-36) U/L ALT 19 (4-34) U/L Alkaline Phosphatase 107 (38-126) U/L Total Protein 6.0 L (6.3-8.2) g/dL Albumin 3.6 (3.5-5.0) g/dL Current Medications Generic Name Dose Route Start Last Admin Trade Name Freq PRN Reason Stop Dose Admin Sodium Chloride 1,000 mls @ 75 mls/hr 04/22/24 22:45 04/23/24 00:16 Saline 0.9% IV 75 mls/hr .[id number] MARGARET Administration Morphine Sulfate 4 mg 04/22/24 22:35 Morphine Sulfate 4 Mg/Ml Syringe IV Q4HR PRN Severe Pain (Scale 7 to 10) Naloxone HCl 0.2 mg 04/22/24 22:35 Naloxone 0.4 Mg/Ml 1 Ml Vial IV Q2M PRN Opioid Reversal Ondansetron HCl 4 mg 04/22/24 22:35 Ondansetron 4 Mg/2 Ml Vial IVP Q8HR PRN Nausea And Vomiting Pantoprazole Sodium 40 mg 04/23/24 09:00 04/23/24 08:30 Pantoprazole 40 Mg/10 Ml Vial IV 40 mg DAILY MARGARET Administration Intake and Output 04/22/24 04/23/24 04/23/24 22:59 06:59 14:59 Other: Weight 70.307 kg 04/22/24 21:20 04/22/24 21:20
--- NOTE | 2024-04-23 14:17 | P.CN ---
Psychiatric Consult - . Consult date: 04/23/24 Consult:: 04/23/24 13:26 IDENTIFYING DATA: This patient is a 69-year-old female with a past psych history of depression and anxiety, , has 4 children REASON FOR REFERRAL: Psychiatry was consulted for "psych " HISTORY OF PRESENT ILLNESS: The patient presented to the hospital on 04/22/2024 with chief complaint of altered mental status. CT head was negative. Troponin was negative. Echo was negative. EKG showed normal sinus rhythm QTc 423 . Patient was A&O x 1-2 to self and location and appeared to have difficulty speaking with word finding difficulties loss patient to be frustrated at times. Sitter is at bedside. Upon obtaining collateral from daughter Yanique, patient has a history of aphasia for the past 2/3 years she denied any prior stroke. This began after the passing of patient's in which patient had "a mental br eakdown "that prompted the start of medications. She has been living in an assisted living facility since after family was unable to care for her. Daughter states the patient appears to be doing well at this [facility] home. She states a psychiatrist comes to the living facility to manage her psychotropic medications. At this time patient denies any suicidal or homical ideations, intent or plan. Patient denies any auditory, visual hallucinations and denies any paranoia or delusions. PAST PSYCHIATRIC HISTORY: Patient has a a history of anxiety and depression. Is currently on Effexor XR 225 mg, Prozac 20 mg, Zyprexa 2.5 mg, Remeron 30 mg. Patient denies any previous psychiatric hospitalizations. Migel states that a provider comes to the assisted living facility and manages patient's medications] patient denies any history of suicide attempts in the past. PAST MEDICAL HISTORY: Aphasia ALLERGIES: as per EMR. CHEMICAL DEPENDENCY HISTORY: as per HPI. FAMILY PSYCHIATRIC/SUBSTANCE USE HISTORY: Denies SOCIAL HISTORY: Patient has 2 daughters and 2 sons. She has been living at an assisted living facility since October 2023. MENTAL STATUS EXAM: General Appearance: Patient appears frustrated at times however appeared to be stated age. Patient appears to have fair hygiene and grooming wearing hospital gown with fair eye contact. Behavior: Patient is calmly lying in bed without any agitated behavior. Speech: Patient's speech is nonsensical Mood/Affect: Patient reports their mood is "ok", affect is constricted Suicidality/Homicidality: Patient denies having any suicidal or homicidal ideation intent or plan. Perceptions: Patient denies any visual hallucinations and denies any auditory hallucinations Though content/process: There is no evidence of any delusional thought content and thought process is linear and goal-directed. Memory and concentration: AOX2, grossly intact for the purposes of this session. Judgment and insight: Fair IMPRESSIONS: Depression, unspecified Anxiety, unspecified Aphasia PLAN: -At this time patient DOES NOT meet criteria for inpatient psychiatric admission. -Would recommend the following medication changes/additions: Continue holding Prozac 20 mg and continue Remeron 30 mg at bedtime, melatonin 5 mg at bedtime, Zyprexa 5 mg, Effexor XR 225 mg -political worker to provide patient with outpatient mental health/psychiatry re sources for appropriate follow up upon discharge -Communicated plan to patient's nurse -Psychiatry will sign off at this time-Please contact with any questions. 04/23/24 14:00 04/23/24 14:16
--- NOTE | 2024-04-23 14:25 | P.HPIM ---
History of Present Illness H&P Date: 04/23/24 History of present illness; 69-year-old female presents emergency department for evaluation for altered mental status with syncopal vs near syncopal episode after the shower today. Upon arrival to the emergency department patient was minimally responsive, although symptoms have been improving. Patient was brought to the emergency department by EMS and her history was via EMS as well as the patient's chart. Patient has had past medical history of hypertension, as well as a previous visit to this facility for mental health evaluation. On arrival she was afebrile with a blood pressure 135/80, heart rate 84, respiratory rate 12, saturating at 97% on room air. Patient currently remains afebrile with a blood pressure 148/76, heart rate 76, respiratory rate of 20, saturating 96% on room air. Patient states that she had a syncopal episode, or near syncopal episode, while in the shower last night in which she felt faint and almost passed out. Upon seeing the patient this morning, she is unable to respond appropriately to questions or give any accurate accounting of why she is in the hospital and what occurred prior to her arrival. Cardiology and neurology are consulted and will see the patient. Per cardiology's request echocardiogram has been ordered. Additionally, psych has been consulted and will see the patient due to the patient's extensive list of psychiatric medications including venlafaxine, Zyprexa, Remeron and Prozac. For which she denies any previous psychiatric hospitalization and any history of suicide attempts in the past. Upon seeing the patient again later in the morning, patient children were at the bedside who explained that at her assisted living facility, [facility], she did not receive her psychiatric medications which caused her to have a panic attack which included hyperventilating and vomiting while in the shower, they were told that the patient became unresponsive and she was then unarousable which prompted her to be brought to this facility. Initial lab work done in the ER showed WBCs 8.0, Hgb 11.6, Hct 35.7, PLT 257; PT 10.6, INR 1.0, PTT 22.3; sodium 137, potassium 3.7, chloride 109, BUN 20, creatinine 0.94 EKG done in the ER showed heart rate of 88, no ST segment elevation or depression seen, no T-wave inversions seen. CT head done showed no acute intracranial process Patient admitted to internal medicine service REVIEW OF SYSTEMS: CONSTITUTIONAL: No fever, no malaise, no fatigue. HEENT: No recent visual problems or hearing problems. Denied any sore throat. CARDIOVASCULAR: No chest pain, orthopnea, PND, no palpitations, no syncope. PULMONARY: No shortness of breath, no cough, no hemoptysis. GASTROINTESTINAL: No diarrhea, no nausea, no vomiting, no abdominal pain. NEUROLOGICAL: No headaches, no weakness, no numbness. HEMATOLOGICAL: Denies any bleeding or petechiae. GENITOURINARY: Denies any burning micturition, frequency, or urgency. MUSCULOSKELETAL/RHEUMATOLOGICAL: Denies any joint pain, swelling, or any muscle pain. ENDOCRINE: Denies any polyuria or polydipsia. The rest of the 14-point review of systems is negative. PHYSICAL EXAMINATION: GENERAL: The patient is alert and oriented x1, not in any acute distress. Well developed, well nourished. HEENT: Pupils are round and equally reacting to light. EOMI. No scleral icterus. No conjunctival pallor. Normocephalic, atraumatic. No pharyngeal erythema. No thyromegaly. CARDIOVASCULAR: S1 and S2 present. No murmurs, rubs, or gallops. PULMONARY: Chest is clear to auscultation, no wheezing or crackles. ABDOMEN: Soft, nontender, nondistended, normoactive bowel sounds. No palpable organomegaly. MUSCULOSKELETAL: No joint swelling or deformity. EXTREMITIES: No cyanosis, clubbing, or pedal edema. NEUROLOGICAL: Gross neurological examination did not reveal any focal deficits. SKIN: No rashes. Assessment and plan # Questionable syncopal episode Per cardiology's request echo was completed which showed ejection fraction of 55-60% Cardiology was consulted however seems likely origin of possible syncopal episode not related patient cardiac health # Possible encephalopathy secondary to polypharmacy Hard to determine patient's baseline mentation however she had altered mentation when seen this morning Per seen the patient myself as well as the report from the nurse who had seen her earlier in the morning, patient's mentation has not changed, maintained A&O x 1, subdued, unable to appropriately respond to questions Unsure if patient received her medications at her assisted living facility; patient's children state that she has previously had a "panic attack" like episodes following times when she has not received her medication which led to similar unresponsiveness # History of psychosis Patient on multiple psychiatric medications Patient denies any history of suicide attempts or any previous hospitalizations secondary to psychiatric incidents Continue to monitor vital signs, monitor CBC, monitor CMP, continue telemetry monitoring Labs and medication were reviewed. Continue with symptomatic treatment. Resume home medication. Dictation was produced using [employer] dictation software. please excuse any grammatical, word or spelling errors. Dr. Estuardo MD I have performed a history and physical examination and medical decision making of this patient, discussed the same with the the resident, and agree with the assessment and plan as written. I performed brief physical exam. Past Medical History Past Medical History: Hypertension Additional Past Medical History / Comment(s): Aphasia Past Psychological History: Anxiety, Depression Medications and Allergies Home Medications Medication Instructions Recorded Confirmed Type Atorvastatin [Lipitor] 20 mg PO HS 11/10/23 04/23/24 History Losartan Potassium [Cozaar] 100 mg PO DAILY 11/10/23 04/23/24 History Mirtazapine [Remeron] 30 mg PO HS 11/10/23 04/23/24 History Venlafaxine HCl [Effexor XR] 150 mg PO DAILY 11/10/23 04/23/24 History Cyanocobalamin (Vitamin B-12) 1,000 mcg PO DAILY 04/23/24 04/23/24 History [Vitamin B-12] Docusate [Colace] 100 mg PO DAILY 04/23/24 04/23/24 History LORazepam [Ativan] 1 mg PO BID PRN 04/23/24 04/23/24 History Melatonin 5 mg PO HS 04/23/24 04/23/24 History OLANZapine [ZyPREXA] 5 mg PO HS 04/23/24 04/23/24 History Venlafaxine HCl ER [Effexor XR] 75 mg PO DAILY 04/23/24 04/23/24 History Allergies Allergy/AdvReac Type Severity Reaction Status Date / Time No Known Allergies Allergy Verified 04/23/24 07:23 Physical Exam Vitals: Vital Signs Temp Pulse Resp BP Pulse Ox 04/23/24 06:56 98.1 F 76 20 148/76 96 04/23/24 02:05 75 16 105/61 95 04/23/24 00:18 79 16 133/74 95 04/22/24 20:45 97.8 F 87 16 149/82 95 Intake and Output 04/22/24 04/23/24 04/23/24 22:59 06:59 14:59 Other: Weight 70.307 kg Results CBC & Chem 7: 04/23/24 08:33 04/23/24 08:33 Labs: Abnormal Lab Results - Last 24 Hours (Table) 04/22/24 Range/Units 21:20 Chloride 109 H (98-107) mmol/L BUN 20 H (7-17) mg/dL Glucose 119 H (74-99) mg/dL Total Protein 6.0 L (6.3-8.2) g/dL
--- NOTE | 2024-04-23 14:30 | P.DS ---
Providers Date of admission: 04/22/24 22:40 Attending physician: Issa Rocha Consults: 04/22/24 22:35 Consult Physician Routine Consulting Provider: Red Marmolejo Consult Reason/Comments: psych Do you want consulting provider notified?: Yes Consult Physician Urgent Consulting Provider: Misbah Alonso Consult Reason/Comments: syncope Do you want consulting provider notified?: Yes Primary care physician: Sheree Mayorga Hospital Course: Discharge diagnoses; # Questionable syncopal episode # Possible encephalopathy secondary to polypharmacy # History of psychosis Hospital course; 69-year-old female presents emergency department for evaluation for altered mental status with syncopal vs near syncopal episode after the shower today. Upon arrival to the emergency department patient was minimally responsive, although symptoms have been improving. Patient was brought to the emergency department by EMS and her history was via EMS as well as the patient's chart. Patient has had past medical history of hypertension, as well as a previous visit to this facility for mental health evaluation. On arrival she was afebrile with a blood pressure 135/80, heart rate 84, respiratory rate 12, saturating at 97% on room air. Patient currently remains afebrile with a blood pressure 148/76, heart rate 76, respiratory rate of 20, saturating 96% on room air. Patient states that she had a syncopal episode, or near syncopal episode, while in the shower last night in which she felt faint and almost passed out. Upon seeing the patient this morning, she is unable to respond appropriately to questions or give any accurate accounting of why she is in the hospital and what occurred prior to her arrival. Cardiology and neurology are consulted and will see the patient. Per cardiology's request echocardiogram has been ordered. Additionally, psych has been consulted and will see the patient due to the patient's extensive list of psychiatric medications including venlafaxine, Zyprexa, Remeron and Prozac. For which she denies any previous psychiatric hospitalization and any history of suicide attempts in the past. Upon seeing the patient again later in the morning, patient children were at the bedside who explained that at her assisted living facility, [facility], she did not receive her psychiatric medications which caused her to have a panic attack which included hyperventilating and vomiting while in the shower, they were told that the patient became unresponsive and she was then unarousable which prompted her to be brought to this facility. Initial lab work done in the ER showed WBCs 8.0, Hgb 11.6, Hct 35.7, PLT 257; PT 10.6, INR 1.0, PTT 22.3; sodium 137, potassium 3.7, chloride 109, BUN 20, creatinine 0.94 EKG done in the ER showed heart rate of 88, no ST segment elevation or depression seen, no T-wave inversions seen. CT head done showed no acute intracranial process Per psychiatry's recommendation patient will be discharged on the following medication changes: Hold Prozac 20 mg and continue Remeron 30 mg at bedtime, melatonin 5 mg at bedtime, Zyprexa 5 mg, Effexor XR 225 mg. Social work will provide patient with outpatient mental health/psychiatry resources for appropriate follow-up upon discharge After discussion with the patient's children and receiving the recommendations from psychiatry, it was determined that the patient would be more comfortable at the assisted living facility she came from which the patient very much appreciates. PHYSICAL EXAMINATION: GENERAL: The patient is alert and oriented x1, not in any acute distress. Well developed, well nourished. HEENT: Pupils are round and equally reacting to light. EOMI. No scleral icterus. No conjunctival pallor. Normocephalic, atraumatic. No pharyngeal erythema. No thyromegaly. CARDIOVASCULAR: S1 and S2 present. No murmurs, rubs, or gallops. PULMONARY: Chest is clear to auscultation, no wheezing or crackles. ABDOMEN: Soft, nontender, nondistended, normoactive bowel sounds. No palpable organomegaly. MUSCULOSKELETAL: No joint swelling or deformity. EXTREMITIES: No cyanosis, clubbing, or pedal edema. NEUROLOGICAL: Gross neurological examination did not reveal any focal deficits. SKIN: No rashes. Dictation was produced using [employer] dictation software. please excuse any grammatical, word or spelling errors. Dr. Estuardo MD I have performed a history and physical examination and medical decision making of this patient, discussed the same with the the resident, and agree with the assessment and plan as written. I performed brief physical exam. Patient Condition at Discharge: Fair Plan - Discharge Summary New Discharge Prescriptions: Continue Mirtazapine [Remeron] 30 mg PO HS Losartan Potassium [Cozaar] 100 mg PO DAILY Venlafaxine HCl ER [Effexor XR] 75 mg PO DAILY Melatonin 5 mg PO HS LORazepam [Ativan] 1 mg PO BID PRN PRN Reason: Anxiety Docusate [Colace] 100 mg PO DAILY Venlafaxine HCl [Effexor XR] 150 mg PO DAILY Atorvastatin [Lipitor] 20 mg PO HS OLANZapine [ZyPREXA] 5 mg PO HS Cyanocobalamin (Vitamin B-12) [Vitamin B-12] 1,000 mcg PO DAILY Discontinued FLUoxetine HCL [PROzac] 20 mg PO DAILY Discharge Medication List Atorvastatin [Lipitor] 20 mg PO HS 11/10/23 [History] Losartan Potassium [Cozaar] 100 mg PO DAILY 11/10/23 [History] Mirtazapine [Remeron] 30 mg PO HS 11/10/23 [History] Venlafaxine HCl [Effexor XR] 150 mg PO DAILY 11/10/23 [History] Cyanocobalamin (Vitamin B-12) [Vitamin B-12] 1,000 mcg PO DAILY 04/23/24 [History] Docusate [Colace] 100 mg PO DAILY 04/23/24 [History] LORazepam [Ativan] 1 mg PO BID PRN 04/23/24 [History] Melatonin 5 mg PO HS 04/23/24 [History] OLANZapine [ZyPREXA] 5 mg PO HS 04/23/24 [History] Venlafaxine HCl ER [Effexor XR] 75 mg PO DAILY 04/23/24 [History] Follow up Appointment(s)/Referral(s): Sheree Mayorga MD [Primary Care Provider] - 1-2 days Discharge Disposition: HOME SELF-CARE
[2024-04-23 17:04] VITALS: BP 166/82; PULSE 76; TEMP 98.4
[2024-04-23] MEDS ORDERED: ATORVASTATIN 20 MG TAB PO SCH (21:00)
[2024-04-23] MEDS ORDERED: MELATONIN 5 MG TABLET PO SCH (21:00)
[2024-04-23] MEDS ORDERED: OLANZapine 5 MG TAB PO SCH (21:00)
[2024-04-23] MEDS ORDERED: MIRTAZAPINE 15 MG TAB PO SCH (21:00)
== END 2024-04-23 19:55 | disposition home or self-care (01) ==
LOC: EC 20:40 → INTOOBSV 22:40 → 3SCARD 22:40
PROVIDERS: ADMIT Hospitalist; ATTEND Hospitalist
DX: R41.82 Altered mental status, unspecified (principal); I95.1 Orthostatic hypotension; E86.0 Dehydration; R11.10 Vomiting, unspecified; F29 Unspecified psychosis not due to a substance or known physiological condition; I10 Essential (primary) hypertension; E78.5 Hyperlipidemia, unspecified; F32.A Depression, unspecified; F41.0 Panic disorder [episodic paroxysmal anxiety]; R47.01 Aphasia; I34.0 Nonrheumatic mitral (valve) insufficiency; T43.226A Underdosing of selective serotonin reuptake inhibitors, initial encounter; T43.026A Underdosing of tetracyclic antidepressants, initial encounter; T43.596A Underdosing of other antipsychotics and neuroleptics, initial encounter; T43.216A Underdosing of selective serotonin and norepinephrine reuptake inhibitors, initial encounter; Z91.A48 Caregiver's other noncompliance with patient's medication regimen for other reason; Z79.899 Other long term (current) drug therapy
CPT/HCPCS: 96361; 96374; 99285; 36415; 93005; 93306; 83880; 80053 ×2; 83605; 83690; 83735 ×2; 84100 ×2; 84484; 85025 ×2; 85610; 85730; 81001; 70450; G0378 ×2; J2470

== ENCOUNTER 2024-09-21 12:41 | Emergency (ER) | payer MEDICARE, OTHER ==
--- NOTE | 2024-09-21 13:02 | ED ---
General Adult HPI - General Chief complaint: Recheck/Abnormal Lab/Rx Stated complaint: AMS Time Seen by Provider: 09/21/24 12:43 Source: EMS, RN notes reviewed, old records reviewed, Caregiver Mode of arrival: EMS Limitations: altered mental status - History of Present Illness Initial comments: 69-year-old female found outside kneeling in a snow bank near an assisted living facility. She was found by a crm business analyst, paramedics were called and the patient was transported to the emergency department. She was initially a Pamela Zuñiga with unknown baseline medical history. After the patient was identified it was discovered that she is patient with advanced dementia coming from [facility]. [facility] had a leak in the fire suppression system and malfunctioning locks on the doors to the dementia unit and the patient was able to leave the facility. No injuries. Patient is at baseline according to staff. Patient was outside for a very short period of time. - Related Data Allergies Allergy/AdvReac Type Severity Reaction Status Date / Time Unable to Assess Allergy Verified 09/21/24 12:50 Review of Systems ROS Statement: Those systems with pertinent positive or pertinent negative responses have been documented in the HPI. ROS Other: All systems not noted in ROS Statement are negative. Past Medical History Past Medical History: Unable to Obtain History of Any Multi-Drug Resistant Organisms: Unobtainable Past Surgical History: Unable to Obtain Past Psychological History: Unable to Obtain Smoking Status: Unknown if ever smoked Past Alcohol Use History: Unable to Obtain Past Drug Use History: Unable to Obtain General Exam Limitations: no limitations General appearance: alert, in no apparent distress Head exam: Present: atraumatic, normocephalic Eye exam: Present: normal appearance, PERRL Neck exam: Present: normal inspection Respiratory exam: Present: normal lung sounds bilaterally. Absent: respiratory distress, wheezes Cardiovascular Exam: Present: regular rate, normal rhythm GI/Abdominal exam: Present: soft. Absent: distended, tenderness Extremities exam: Present: normal inspection. Absent: tenderness Neurological exam: Present: alert, CN II-XII intact. Absent: oriented X3, motor sensory deficit Psychiatric exam: Present: normal affect, normal mood Skin exam: Present: warm, dry, intact. Absent: cyanosis, diaphoretic Course Vital Signs 09/21/24 12:44 Temperature 98.3 F Pulse Rate 61 Respiratory 20 Rate Blood Pressure 152/77 O2 Sat by Pulse 93 L Oximetry Medical Decision Making - Medical Decision Making Was pt. sent in by a medical professional or institution (CARLITOS Davison, SENIOR STATISTICIAN, urgent care, hospital, or assisted...) When possible be specific @ -No Did you speak to anyone other than the patient for history (EMS, parent, family, police, friend...)? What history was obtained from this source @ -No Did you review nursing and triage notes (agree or disagree)? Why? @ -I reviewed and agree with nursing and triage notes Were old charts reviewed (outside hosp., previous admission, EMS record, old EKG, old radiological studies, urgent care reports/EKG's, assisted records)? Report findings @ -No old charts were reviewed Differential Diagnosis: advanced dementia, hypothermia, injury EKG interpreted by me (3pts min.). @ -As above X-rays interpreted by me (1pt min.). @ -None done CT interpreted by me (1pt min.). @ -None done U/S interpreted by me (1pt. min.). @ -None done What testing was considered but not performed or refused? (CT, X-rays, U/S, labs)? Why? @ -None What meds were considered but not given or refused? Why? @ -None Did you discuss the management of the patient with other professionals (professionals i.e. CARLITOS Davison, SENIOR STATISTICIAN, lab, RT, psych nurse, child welfare social worker, printing agent, teacher, airframe technical officer, supervisor case loading)? Give summary @ -No Was smoking cessation discussed for >3mins.? @ -No Was critical care preformed (if so, how long)? @ -No Were there social determinants of health that impacted care today? How? (Homelessness, low income, unemployed, alcoholism, drug addiction, transportation, low edu. Level, literacy, decrease access to med. care, penitentiary, rehab)? @ -No Was there de-escalation of care discussed even if they declined (Discuss DNR or withdrawal of care, Hospice)? DNR status @ -No What co-morbidities impacted this encounter? (DM, HTN, Smoking, COPD, CAD, Cancer, CVA, ARF, Chemo, Hep., AIDS, mental health diagnosis, sleep apnea, morbid obesity)? @ -Dementia Was patient admitted / discharged? Hospital course, mention meds given and route, prescriptions, significant lab abnormalities, going to OR and other pertinent info. @69-year-old female with accidental elopement from the assisted living facility where she resides. Staff is present in the emergency department and family has been notified. Patient has no external signs of trauma, no injuries, no complaints and is at baseline. Stable for discharge. Undiagnosed new problem with uncertain prognosis? @ -No Drug Therapy requiring intensive monitoring for toxicity (Heparin, Nitro, Insulin, Cardizem)? @ -No Were any procedures done? @ -No Diagnosis/symptom? @Dementia, elopement Acute, or Chronic, or Acute on Chronic? @Acute Uncomplicated (without systemic symptoms) or Complicated (systemic symptoms)? @ -Default Side effects of treatment? @ -No Exacerbation, Progression, or Severe Exacerbation? @ -No Poses a threat to life or bodily function? How? (Chest pain, USA, MT, pneumonia, PE, COPD, DKA, ARF, appy, cholecystitis, CVA, Diverticulitis, Homicidal, Suicidal, threat to staff... and all critical care pts) @ -No Disposition Clinical Impression: Dementia, History of elopement from health care facility Disposition: HOME SELF-CARE Condition: Fair Is patient prescribed a controlled substance at d/c from ED?: No Referrals: Aj Pak MD [Primary Care Provider] - 1-2 days Time of Disposition: 13:02
[2024-09-21 13:37] VITALS: BP 133/65; PULSE 65; RESP 18; TEMP 98.1
== END 2024-09-21 13:38 | disposition home or self-care (01) ==
LOC: EDBD → SUPCPDRO 12:41 → MERGE 12:41 → EC 12:41
DX: F03.90 Unspecified dementia, unspecified severity, without behavioral disturbance, psychotic disturbance, mood disturbance, and anxiety (principal); Z91.83 Wandering in diseases classified elsewhere; Z88.8 Allergy status to other drugs, medicaments and biological substances
CPT/HCPCS: 99284

== ENCOUNTER 2024-10-26 19:00 | Emergency (ER) | payer MEDICARE ==
[2024-10-26 19:25] VITALS: RESP 18; TEMP 98.4
--- NOTE | 2024-10-26 19:34 | ED ---
General Adult HPI - General Chief complaint: Fall Stated complaint: Fall-Back pain Time Seen by Provider: 10/26/24 19:15 Source: EMS, RN notes reviewed, Caregiver Mode of arrival: EMS - History of Present Illness Initial comments: This is a 69-year-old female with aphasia presents emergency department from [facility] for complaint of a fall. History was mainly obtained from staff at bedside due to patient's mental status. Staff states that patient is at her baseline mentation. It is reported that patient had 2 unwitnessed falls earlier today. Patient is complaining of lower back pain since the time of her falls. Additionally, is reported that patient is currently treated for urinary tract infection with Macrobid. - Related Data Home Medications Medication Instructions Recorded Confirmed Atorvastatin [Lipitor] 20 mg PO HS 11/10/23 09/09/24 Losartan Potassium [Cozaar] 100 mg PO DAILY 11/10/23 09/09/24 Mirtazapine [Remeron] 30 mg PO HS 11/10/23 09/09/24 Venlafaxine HCl [Effexor XR] 150 mg PO DAILY 11/10/23 09/09/24 Cyanocobalamin (Vitamin B-12) 1,000 mcg PO DAILY 04/23/24 09/09/24 [Vitamin B-12] Docusate [Colace] 100 mg PO DAILY 04/23/24 09/09/24 LORazepam [Ativan] 1 mg PO BID PRN 04/23/24 09/09/24 Melatonin 5 mg PO HS 04/23/24 09/09/24 OLANZapine [ZyPREXA] 5 mg PO HS 04/23/24 09/09/24 Venlafaxine HCl ER [Effexor XR] 75 mg PO DAILY 04/23/24 09/09/24 Cariprazine HCl [Vraylar] 1.5 mg PO DAILY 09/09/24 09/09/24 Allergies Allergy/AdvReac Type Severity Reaction Status Date / Time No Known Allergies Allergy Verified 10/26/24 19:25 Review of Systems ROS Statement: Those systems with pertinent positive or pertinent negative responses have been documented in the HPI. ROS Other: All systems not noted in ROS Statement are negative. Past Medical History Past Medical History: Hypertension, Unable to Obtain Additional Past Medical History / Comment(s): Aphasia History of Any Multi-Drug Resistant Organisms: Unobtainable Past Surgical History: Unable to Obtain Past Psychological History: Anxiety, Depression, Unable to Obtain Smoking Status: Unknown if ever smoked Past Alcohol Use History: Unable to Obtain Past Drug Use History: Unable to Obtain General Exam General appearance: alert, in no apparent distress Eye exam: Present: normal appearance, PERRL, EOMI. Absent: scleral icterus, conjunctival injection, periorbital swelling ENT exam: Present: normal exam, mucous membranes moist Neck exam: Present: normal inspection. Absent: tenderness, meningismus, lymphadenopathy Respiratory exam: Present: normal lung sounds bilaterally. Absent: respiratory distress, wheezes, rales, rhonchi, stridor Cardiovascular Exam: Present: regular rate, normal rhythm, normal heart sounds. Absent: systolic murmur, diastolic murmur, rubs, gallop, clicks GI/Abdominal exam: Present: soft, normal bowel sounds. Absent: distended, tenderness, guarding, rebound, rigid Extremities exam: Present: normal inspection, full ROM, normal capillary refill. Absent: tenderness, pedal edema, joint swelling, calf tenderness Back exam: Present: normal inspection Course Vital Signs 10/26/24 19:17 Temperature 98.4 F Pulse Rate 83 Respiratory 18 Rate Blood Pressure 132/86 O2 Sat by Pulse 98 Oximetry Medical Decision Making - Medical Decision Making Was pt. sent in by a medical professional or institution (CARLITOS Davison, DIAMOND DRILLER HELPER, urgent care, hospital, or intermediate...) When possible be specific @ -No Did you speak to anyone other than the patient for history (EMS, parent, family, police, friend...)? What history was obtained from this source @ -No Did you review nursing and triage notes (agree or disagree)? Why? @ -I reviewed and agree with nursing and triage notes Were old charts reviewed (outside hosp., previous admission, EMS record, old EKG, old radiological studies, urgent care reports/EKG's, intermediate records)? Report findings @ -No old charts were reviewed Differential Diagnosis (chest pain, altered mental status, abdominal pain women, abdominal pain men, vaginal bleeding, weakness, fever, dyspnea, syncope, headache, dizziness, GI bleed, back pain, seizure, CVA, palpatations, mental health, musculoskeletal)? @ -Differential Weakness: Hypoglycemia, shock, sepsis, hyponatremia, anemia, infection, NC, ETOH, adverse medicine reaction, overdose, stroke, this is not meant to be an all-inclusive list. EKG interpreted by me (3pts min.). @ -Completed at 2116 sinus rhythm with a ventricular rate of 63, MS interval 171, QRS 93, QTc 422 X-rays interpreted by me (1pt min.). @ -X-ray of the lumbar spine no evidence of acute fracture, multilevel disc degeneration CT interpreted by me (1pt min.). @ -CT of the brain and C-spine without contrast no evidence of intracranial or cervical spine process U/S interpreted by me (1pt. min.). @ -None done What testing was considered but not performed or refused? (CT, X-rays, U/S, labs)? Why? @ -None What meds were considered but not given or refused? Why? @ -None Did you discuss the management of the patient with other professionals (professionals i.e. , PA, DIAMOND DRILLER HELPER, lab, RT, psych nurse, social media campaign manager, classified advertising clerk, teacher, placement officer, high risk case manager)? Give summary @ -No Was smoking cessation discussed for >3mins.? @ -No Was critical care preformed (if so, how long)? @ -No Were there social determinants of health that impacted care today? How? (Homelessness, low income, unemployed, alcoholism, drug addiction, tr ansportation, low edu. Level, literacy, decrease access to med. care, halfway, rehab)? @ -No Was there de-escalation of care discussed even if they declined (Discuss DNR or withdrawal of care, Hospice)? DNR status @ -No What co-morbidities impacted this encounter? (DM, HTN, Smoking, COPD, CAD, Cancer, CVA, ARF, Chemo, Hep., AIDS, mental health diagnosis, sleep apnea, morbid obesity)? @ -None Was patient admitted / discharged? Hospital course, mention meds given and route, prescriptions, significant lab abnormalities, going to OR and other pertinent info. @ -Discharge. 69-year-old female presenting with multiple falls. Overall patient is well-appearing. CT imaging the brain C-spine no acute process. X- ray lumbar spine no evidence of acute fracture. Laboratory testing grossly with in normal including CBC, CMP, and urinalysis no signs of infection. Patient is stable for discharge. Return parameters discussed. Case discussed with Dr. Medellin Undiagnosed new problem with uncertain prognosis? @ -No Drug Therapy requiring intensive monitoring for toxicity (Heparin, Nitro, Insulin, Cardizem)? @ -No Were any procedures done? @ -No Diagnosis/symptom? @ -fall Acute, or Chronic, or Acute on Chronic? @ -acute Uncomplicated (without systemic symptoms) or Complicated (systemic symptoms)? @ -uncomplicated Side effects of treatment? @ -No Exacerbation, Progression, or Severe Exacerbation? @ -No Poses a threat to life or bodily function? How? (Chest pain, USA, NC, pneumonia, PE, COPD, DKA, ARF, appy, cholecystitis, CVA, Diverticulitis, Homicidal, Suicidal, threat to staff... and all critical care pts) @ -No - Lab Data Result diagrams: 10/26/24 20:45 10/26/24 20:45 Lab Results 10/26/24 10/26/24 10/26/24 Range/Units 20:45 20:45 20:45 WBC 7.0 (3.8-10.6) k/uL RBC 4.93 (3.80-5.40) m/uL Hgb 13.9 (11.4-16.0) gm/dL Hct 43.7 (34.0-46.0) % MCV 88.7 (80.0-100.0) fL MCH 28.2 (25.0-35.0) pg MCHC 31.8 (31.0-37.0) g/dL RDW 13.2 (11.5-15.5) % Plt Count 241 (150-450) k/uL MPV 8.0 Neutrophils % 63 % Lymphocytes % 25 % Monocytes % 6 % Eosinophils % 5 % Basophils % 0 % Neutrophils # 4.4 (1.3-7.7) k/uL Lymphocytes # 1.8 (1.0-4.8) k/uL Monocytes # 0.4 (0-1.0) k/uL Eosinophils # 0.3 (0-0.7) k/uL Basophils # 0.0 (0-0.2) k/uL PT 11.0 (10.0-12.5) sec INR 1.0 (<1.2) APTT 25.9 (22.0-30.0) sec Sodium 140 (137-145) mmol/L Potassium 4.0 (3.5-5.1) mmol/L Chloride 104 (98-107) mmol/L Carbon Dioxide 26 (22-30) mmol/L Anion Gap 10 mmol/L BUN 11 (7-17) mg/dL Creatinine 0.83 (0.52-1.04) mg/dL Est GFR (CKD-EPI)AfAm 83 (>60 ml/min/1.73 sqM) Est GFR (CKD-EPI)NonAf 72 (>60 ml/min/1.73 sqM) Glucose 83 (74-99) mg/dL Calcium 8.9 (8.4-10.2) mg/dL Magnesium 2.1 (1.6-2.3) mg/dL Total Bilirubin 0.6 (0.2-1.3) mg/dL AST 25 (14-36) U/L ALT 19 (4-34) U/L Alkaline Phosphatase 136 H (38-126) U/L Creatine Kinase 49 (30-135) U/L Troponin I (0.000-0.034) ng/mL Total Protein 6.9 (6.3-8.2) g/dL Albumin 4.0 (3.5-5.0) g/dL Lipase 88 (23-300) U/L Urine Color Urine Appearance (Clear) Urine pH (5.0-8.0) Ur Specific [place] (1.001-1.035) Urine Protein (Negative) Urine Glucose (UA) (Negative) Urine Ketones (Negative) Urine Blood (Negative) Urine Nitrite (Negative) Urine Bilirubin (Negative) Urine Urobilinogen (<2.0) mg/dL Ur Leukocyte Esterase (Negative) Urine RBC (0-5) /hpf Urine WBC (0-5) /hpf Urine Bacteria (None) /hpf Urine Mucus (None) /hpf 10/26/24 10/26/24 Range/Units 20:45 22:13 WBC (3.8-10.6) k/uL RBC (3.80-5.40) m/uL Hgb (11.4-16.0) gm/dL Hct (34.0-46.0) % MCV (80.0-100.0) fL MCH (25.0-35.0) pg MCHC (31.0-37.0) g/dL RDW (11.5-15.5) % Plt Count (150-450) k/uL MPV Neutrophils % % Lymphocytes % % Monocytes % % Eosinophils % % Basophils % % Neutrophils # (1.3-7.7) k/uL Lymphocytes # (1.0-4.8) k/uL Monocytes # (0-1.0) k/uL Eosinophils # (0-0.7) k/uL Basophils # (0-0.2) k/uL PT (10.0-12.5) sec INR (<1.2) APTT (22.0-30.0) sec Sodium (137-145) mmol/L Potassium (3.5-5.1) mmol/L Chloride (98-107) mmol/L Carbon Dioxide (22-30) mmol/L Anion Gap mmol/L BUN (7-17) mg/dL Creatinine (0.52-1.04) mg/dL Est GFR (CKD-EPI)AfAm (>60 ml/min/1.73 sqM) Est GFR (CKD-EPI)NonAf (>60 ml/min/1.73 sqM) Glucose (74-99) mg/dL Calcium (8.4-10.2) mg/dL Magnesium (1.6-2.3) mg/dL Total Bilirubin (0.2-1.3) mg/dL AST (14-36) U/L ALT (4-34) U/L Alkaline Phosphatase (38-126) U/L Creatine Kinase (30-135) U/L Troponin I 0.017 (0.000-0.034) ng/mL Total Protein (6.3-8.2) g/dL Albumin (3.5-5.0) g/dL Lipase (23-300) U/L Urine Color Light Yellow Urine Appearance Clear (Clear) Urine pH 6.0 (5.0-8.0) Ur Specific [place] 1.008 (1.001-1.035) Urine Protein Negative (Negative) Urine Glucose (UA) Negative (Negative) Urine Ketones Negative (Negative) Urine Blood Negative (Negative) Urine Nitrite Negative (Negative) Urine Bilirubin Negative (Negative) Urine Urobilinogen <2.0 (<2.0) mg/dL Ur Leukocyte Esterase Trace H (Negative) Urine RBC 1 (0-5) /hpf Urine WBC 3 (0-5) /hpf Urine Bacteria Rare H (None) /hpf Urine Mucus Rare H (None) /hpf Disposition Clinical Impression: Fall Disposition: HOME SELF-CARE Condition: Good Instructions (If sedation given, give patient instructions): Fall Prevention for Older Adults (ED) Additional Instructions: Please return to the Emergency Department if symptoms worsen or any other concerns. Is patient prescribed a controlled substance at d/c from ED?: No Referrals: Aj Pak MD [Primary Care Provider] - 1-2 days Time of Disposition: 23:02
[2024-10-26] MEDS: SODIUM CHLORIDE 0.9% 1,000 ML IV STA (20:49)
--- NOTE | 2024-10-26 20:49 | CT ---
EXAMINATION TYPE: CT brain cspine wo con DATE OF EXAM: 10/26/2024 8:12 PM COMPARISON: 04/22/2024. CLINICAL INDICATION: Female, 69 years old with history of unwitness fall(s); Pt coming from [facility]. Pt fell twice today. Both falls were unwitnessed., pain TECHNIQUE: Brain: Multiple axial CT images of the brain were obtained without IV contrast. Cspine: Axial CT images from the skull base to the inferior aspect of T2 we obtained without intraven ous contrast. Coronal and sagittal reformatted images were also reviewed. . CT DLP: 1324.7 mGycm, Automated exposure control for dose reduction was used. FINDINGS: Brain: Extra-axial spaces: No abnormal extra-axial fluid collections. Ventricular system: Within normal limits Cerebral parenchyma: No acute intraparenchymal hemorrhage or mass effect. The penn-white junction is well differentiated. Cerebellum: Unremarkable. Mass effect: No evidence of midline shift. Intracranial vasculature: unremarkable Soft tissues: Normal. Calvarium/osseous structures: No depressed skull fracture. Paranasal sinuses and mastoid air cells: Clear. Visualized orbits: Orbital contents are intact. Cervical spine: Fracture: None. Osseous structures: Multilevel degenerative disc disease changes with endplate spurring and disc oste ophyte complex's. Vertebral alignment: Within normal limits. Spinal canal/Neural Foramina: No evidence of significant spinal canal narrowing. No evidence for sign ificant neural foraminal stenosis. Neck soft tissues: Prevertebral soft tissues are within normal limits. Other: The airway is patent. The lung apices are clear. Atherosclerosis of the carotid bifurcations. IMPRESSION: 1. No acute intracranial process. 2. No evidence of cervical spine fracture. 3. Mild multilevel degenerative disc disease. [facility], , 10/26/2024 8:46 PM
[2024-10-26 21:00] LABS: Basophils % (A) 0 %; Eosinophils # (A) 0.3 k/uL (0-0.7); Eosinophils % (A) 5 %; HCT 43.7 % (34.0-46.0); HGB 13.9 gm/dL (11.4-16.0); Lymphocytes # (A) 1.8 k/uL (1.0-4.8); Lymphocytes % (A) 25 %; MCH 28.2 pg (25.0-35.0); MCHC 31.8 g/dL (31.0-37.0); MCV 88.7 fL (80.0-100.0); Monocytes # (A) 0.4 k/uL (0-1.0); Monocytes % (A) 6 %; Neutrophils # (A) 4.4 k/uL (1.3-7.7); Neutrophils % (A) 63 %; Platelet Count 241 k/uL (150-450); RBC 4.93 m/uL (3.80-5.40); RDW 13.2 % (11.5-15.5)
--- NOTE | 2024-10-26 21:13 | XR ---
EXAMINATION TYPE: XR lumbar spine 2 or 3V DATE OF EXAM: 10/26/2024 8:17 PM COMPARISON: None CLINICAL INDICATION: Female, 69 years old with history of fall;, pain TECHNIQUE: XR lumbar spine 2 or 3V - Frontal, lateral and coned in L5-S1 lateral views of the spine. FINDINGS: No evidence of any acute osseous pathology. No evidence of loss of vertebral body height i s seen. There is normal alignment of the lumbar vertebral bodies. Scattered disc space narrowing. Mul tilevel marginal osteophyte formation throughout the visualized spine. There is facet joint arthropat hy throughout the spine. Scattered at least mild neural foraminal stenosis. IMPRESSION: 1. No acute fracture. 2. Moderate multilevel disc degeneration. [facility], , 10/26/2024 9:11 PM
[2024-10-26 21:18] LABS: ALT 19 U/L (4-34); African American GFR (CKD) 83 (>60 ml/min/1.73 sqM); Anion Gap 10 mmol/L; Blood Urea Nitrogen 11 mg/dL (7-17); Calcium 8.9 mg/dL (8.4-10.2); Carbon Dioxide 26 mmol/L (22-30); Chloride 104 mmol/L (98-107); Creatine Kinase 49 U/L (30-135); Glucose 83 mg/dL (74-99); Lipase 88 U/L (23-300); Non-African American GFR(CKD) 72 (>60 ml/min/1.73 sqM); Sodium 140 mmol/L (137-145); Total Bilirubin 0.6 mg/dL (0.2-1.3); Total Protein 6.9 g/dL (6.3-8.2)
[2024-10-26 21:35] LABS: Partial Thromboplastin Time 25.9 sec (22.0-30.0)
[2024-10-26 21:37] LABS: AST 25 U/L (14-36); Alkaline Phosphatase 136 U/L (38-126); Magnesium 2.1 mg/dL (1.6-2.3)
[2024-10-26 22:43] LABS: Appearance,Urine Clear (Clear); Bacteria,Urine Rare /hpf; Bilirubin,Urine Negative (Negative); Blood,Urine Negative (Negative); Color,Urine Light Yellow; Glucose,Urine (UA) Negative (Negative); Ketones,Urine Negative (Negative); Leukocyte Esterase,Urine Trace (Negative); Mucus,Urine Rare /hpf; Nitrite,Urine Negative (Negative); Protein,Urine Negative (Negative); RBC,Urine 1 /hpf (0-5); Specific Gravity,Urine 1.008 (1.001-1.035); Urobilinogen,Urine <2.0 mg/dL (<2.0); WBC,Urine 3 /hpf (0-5)
[2024-10-26 23:31] VITALS: BP 128/82; PULSE 78
== END 2024-10-26 23:47 | disposition home or self-care (01) ==
LOC: EC 19:00
DX: M54.50 Low back pain, unspecified (principal); W19.XXXA Unspecified fall, initial encounter
CPT/HCPCS: 36415; 70450; 72100; 72125; 80053; 81001; 82550; 83690; 83735; 84484; 85025; 85610; 85730; 93005; 96360; 99285

== ENCOUNTER 2024-10-29 23:42 | Emergency (ER) | payer MEDICARE ==
[2024-10-29 23:46] VITALS: TEMP 97
--- NOTE | 2024-10-30 00:10 | ED ---
General Adult HPI - General Chief complaint: Fall Stated complaint: Fall Time Seen by Provider: 10/29/24 23:43 Source: EMS, RN notes reviewed, old records reviewed, Caregiver Mode of arrival: EMS Limitations: altered mental status - History of Present Illness Initial comments: 69-year-old female with history of dementia presents status post fall with po ssible head injury. No anticoagulation. This was an unwitnessed fall at the [place] [facility] where she resides. There was suspected left-sided head injury based on the positioning the patient was found in. Patient herself is unable to contribute to the history due to baseline dementia. - Related Data Home Medications Medication Instructions Recorded Confirmed Atorvastatin [Lipitor] 20 mg PO HS 11/10/23 09/09/24 Losartan Potassium [Cozaar] 100 mg PO DAILY 11/10/23 09/09/24 Mirtazapine [Remeron] 30 mg PO HS 11/10/23 09/09/24 Venlafaxine HCl [Effexor XR] 150 mg PO DAILY 11/10/23 09/09/24 Cyanocobalamin (Vitamin B-12) 1,000 mcg PO DAILY 04/23/24 09/09/24 [Vitamin B-12] Docusate [Colace] 100 mg PO DAILY 04/23/24 09/09/24 LORazepam [Ativan] 1 mg PO BID PRN 04/23/24 09/09/24 Melatonin 5 mg PO HS 04/23/24 09/09/24 OLANZapine [ZyPREXA] 5 mg PO HS 04/23/24 09/09/24 Venlafaxine HCl ER [Effexor XR] 75 mg PO DAILY 04/23/24 09/09/24 Cariprazine HCl [Vraylar] 1.5 mg PO DAILY 09/09/24 09/09/24 Allergies Allergy/AdvReac Type Severity Reaction Status Date / Time No Known Allergies Allergy Verified 10/29/24 23:46 Review of Systems ROS Statement: Those systems with pertinent positive or pertinent negative responses have been documented in the HPI. ROS Other: All systems not noted in ROS Statement are negative. Past Medical History Past Medical History: Hypertension, Unable to Obtain Additional Past Medical History / Comment(s): Aphasia History of Any Multi-Drug Resistant Organisms: Unobtainable Past Surgical History: Unable to Obtain Past Psychological History: Anxiety, Depression, Unable to Obtain Smoking Status: Unknown if ever smoked Past Alcohol Use History: Unable to Obtain Past Drug Use History: Unable to Obtain General Exam General appearance: alert, in no apparent distress Head exam: Present: atraumatic, normocephalic Eye exam: Present: normal appearance, PERRL ENT exam: Present: normal exam Neck exam: Present: normal inspection. Absent: tenderness, meningismus Respiratory exam: Present: normal lung sounds bilaterally. Absent: respiratory distress, wheezes Cardiovascular Exam: Present: regular rate, normal rhythm GI/Abdominal exam: Present: soft. Absent: distended, tenderness Extremities exam: Present: normal inspection, normal capillary refill. Absent: calf tenderness Neurological exam: Present: alert. Absent: oriented X3, motor sensory deficit Skin exam: Present: warm, dry, intact Course Vital Signs 10/29/24 10/30/24 23:43 00:42 Temperature 97.0 F L Pulse Rate 53 L 51 L Respiratory 18 19 Rate Blood Pressure 127/62 106/60 O2 Sat by Pulse 95 95 Oximetry Medical Decision Making - Medical Decision Making Was pt. sent in by a medical professional or institution (Dr. PA, ADVICE LINE RN, urgent care, hospital, or [place] [facility]...) When possible be specific @ -No Did you speak to anyone other than the patient for history (EMS, parent, family, police, friend...)? What history was obtained from this source @ -No Did you review nursing and triage notes (agree or disagree)? Why? @ -I reviewed and agree with nursing and triage notes Were old charts reviewed (outside hosp., previous admission, EMS record, old EKG, old radiological studies, urgent care reports/EKG's, [place] [facility] records)? Report findings @ -No old charts were reviewed Differential Diagnosis traumatic injury from fall, intracranial hemorrhage, cervical fracture or subluxation EKG interpreted by me (3pts min.). @Sinus bradycardia rate of 54, TX interval 176, QRS duration 92, QTc [address] segment elevation. X-rays interpreted by me (1pt min.). @ -None done CT interpreted by me (1pt min.). @ -CT brain and cervical spine is negative for traumatic injury no intracranial hemorrhage U/S interpreted by me (1pt. min.). @ -None done What testing was considered but not performed or refused? (CT, X-rays, U/S, labs)? Why? @ -None What meds were considered but not given or refused? Why? @ -None Did you discuss the management of the patient with other professionals (professionals i.e. , PA, ADVICE LINE RN, lab, RT, psych nurse, social welfare clerk, scalemaker, teacher, transportation security officer, case planner)? Give summary @ -Caregiver at the facility where she resides Was smoking cessation discussed for >3mins.? @ -No Was critical care preformed (if so, how long)? @ -No Were there social determinants of health that impacted care today? How? (Homelessness, low income, unemployed, alcoholism, drug addiction, transport ation, low edu. Level, literacy, decrease access to med. care, care home, rehab)? @ -No Was there de-escalation of care discussed even if they declined (Discuss DNR or withdrawal of care, Hospice)? DNR status @ -No What co-morbidities impacted this encounter? (DM, HTN, Smoking, COPD, CAD, Cancer, CVA, ARF, Chemo, Hep., AIDS, mental health diagnosis, sleep apnea, morbid obesity)? @ -Dementia Was patient admitted / discharged? Hospital course, mention meds given and route, prescriptions, significant lab abnormalities, going to OR and other pertinent info. @ -69-year-old female presenting from the [place] [facility] she resides after an unwitnessed fall, concern for head injury. There is no external signs of trauma but head CT is obtained which is negative for intracranial hemorrhage. Patient has been sleeping and did take her nighttime medications which include multiple sedating medications. Patient will be discharged back to the [place] [facility] where she resides. Undiagnosed new problem with uncertain prognosis? @ -No Drug Therapy requiring intensive monitoring for toxicity (Heparin, Nitro, Insulin, Cardizem)? @ -No Were any procedures done? @ -No Diagnosis/symptom? @ -[Fall Acute, or Chronic, or Acute on Chronic? @ -acute Uncomplicated (without systemic symptoms) or Complicated (systemic symptoms)? @ -Default Side effects of treatment? @ -No Exacerbation, Progression, or Severe Exacerbation? @ -No Poses a threat to life or bodily function? How? (Chest pain, [place], [place], pneumonia, PE, COPD, DKA, ARF, appy, cholecystitis, CVA, Diverticulitis, Homicidal, Suicidal, threat to staff... and all critical care pts) @ -No Disposition Clinical Impression: Fall Disposition: HOME SELF-CARE Condition: Fair Instructions (If sedation given, give patient instructions): Fall Prevention for Older Adults (ED) Is patient prescribed a controlled substance at d/c from ED?: No Referrals: Aj Pak MD [Primary Care Provider] - 1-2 days Time of Disposition: 02:22
--- NOTE | 2024-10-30 02:17 | CT ---
EXAM: CT Head Without Intravenous Contrast CLINICAL HISTORY: ITS.REASON CT Reason: fall TECHNIQUE: Axial computed tomography images of the head/brain without intravenous contrast. CTDI is 45.2 mGy and DLP is 1115 mGy-cm. This CT exam was performed using one or more of the following dose reduction techniques: automated exposure control, adjustment of the mA and/or kV according to patient size, and/or use of iterative reconstruction technique. COMPARISON: CT brain: 10/26/2024 FINDINGS: Diagnostic sensitivity of the exam is reduced by motion artifact. Brain: There is no acute intracranial hemorrhage, mass-effect or midline shift. The penn-white matter differentiation is maintained. Age-related cortical atrophy with widening of the extra-axial spaces and ventricles and dilatation. There are periventricular/subcortical areas of decreased density, compatible with micro-angiopathic white matter changes. Bones/joints: Unremarkable. No acute fracture. Soft tissues: Unremarkable.. Atherosclerotic ectatic cavernous ICAs: 6 mm in diameter Sinuses: Unremarkable as visualized. No acute sinusitis. Mastoid air cells: Unremarkable as visualized. No mastoid effusion. IMPRESSION: . No acute intracranial process. Chronic involutional and ischemic changes of the brain. EXAM: CT Cervical Spine Without Intravenous Contrast CLINICAL HISTORY: ITS.REASON CT Reason: fall TECHNIQUE: Axial computed tomography images of the cervical spine without intravenous contrast. CTDI is 13.4 mGy and DLP is 400 mGy-cm. This CT exam was performed using one or more of the following dose reduction techniques: automated exposure control, adjustment of the mA and/or kV according to patient size, and/or use of iterative reconstruction technique. COMPARISON: CT cervical spine: 10/26/2024 FINDINGS: Vertebrae: No acute fracture. No segmental malalignment. Discs/spinal canal/neural foramina: Arthritis of the atlantoaxial articulation. C4-C7 levels mild/moderate degenerative spondylitic changes with variable degrees of neuroforaminal/central canal stenosis. No acute findings. Soft tissues: Unremarkable. Lung apices: Pleural-parenchymal thickening/scarring. IMPRESSION: No acute fracture or traumatic malalignment of the cervical spine.
[2024-10-30 02:35] VITALS: BP 131/71; PULSE 52; RESP 18
== END 2024-10-30 02:50 | disposition home or self-care (01) ==
LOC: EC 23:42
DX: S09.90XA Unspecified injury of head, initial encounter (principal); F03.90 Unspecified dementia, unspecified severity, without behavioral disturbance, psychotic disturbance, mood disturbance, and anxiety; W19.XXXA Unspecified fall, initial encounter
CPT/HCPCS: 70450; 72125; 99284

== ENCOUNTER 2024-10-31 10:38 | Emergency (ER) | payer MEDICARE ==
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
[2024-10-31 13:32] LABS: Basophils % (A) 0 %; Eosinophils # (A) 0.1 k/uL (0-0.7); Eosinophils % (A) 4 %; HCT 44.8 % (34.0-46.0); HGB 14.3 gm/dL (11.4-16.0); Lymphocytes # (A) 0.9 k/uL (1.0-4.8); Lymphocytes % (A) 21 %; MCH 28.6 pg (25.0-35.0); MCV 89.2 fL (80.0-100.0); Mean Platelet Volume 8.2; Monocytes # (A) 0.3 k/uL (0-1.0); Monocytes % (A) 7 %; Neutrophils # (A) 2.7 k/uL (1.3-7.7); Neutrophils % (A) 67 %; Platelet Count 252 k/uL (150-450); RBC 5.02 m/uL (3.80-5.40); RDW 13.2 % (11.5-15.5); WBC 4.1 k/uL (3.8-10.6)
[2024-10-31 13:38] LABS: ALT 26 U/L (4-34); AST 29 U/L (14-36); African American GFR (CKD) 75 (>60 ml/min/1.73 sqM); Albumin 4.1 g/dL (3.5-5.0); Alkaline Phosphatase 144 U/L (38-126); Anion Gap 7 mmol/L; Blood Urea Nitrogen 13 mg/dL (7-17); Calcium 9.5 mg/dL (8.4-10.2); Carbon Dioxide 31 mmol/L (22-30); Chloride 105 mmol/L (98-107); Glucose 107 mg/dL (74-99); Non-African American GFR(CKD) 65 (>60 ml/min/1.73 sqM); Potassium 3.8 mmol/L (3.5-5.1); Sodium 143 mmol/L (137-145); Total Bilirubin 0.5 mg/dL (0.2-1.3)
[2024-10-31 13:40] LABS: Appearance,Urine Clear (Clear); Bilirubin,Urine Negative (Negative); Blood,Urine Negative (Negative); Color,Urine Yellow; Glucose,Urine (UA) Negative (Negative); Ketones,Urine Negative (Negative); Leukocyte Esterase,Urine Trace (Negative); Mucus,Urine Rare /hpf; Nitrite,Urine Negative (Negative); Protein,Urine Trace (Negative); RBC,Urine 1 /hpf (0-5); Specific Gravity,Urine 1.022 (1.001-1.035); Squamous Epithelial Cell,Urine <1 /hpf (0-4); WBC,Urine 1 /hpf (0-5)
[2024-10-31 13:45] LABS: Amphetamine Screen,Urine Not Detected (NotDetected); Barbiturate Screen,Urine Not Detected (NotDetected); Benzodiazepines Screen,Urine Detected (NotDetected); Cocaine Screen,Urine Not Detected (NotDetected); Methadone Screen, Urine Not Detected (NotDetected); Opiate Screen,Urine Not Detected (NotDetected); Oxycodone Screen, Urine Not Detected (NotDetected); Phencyclidine Screen,Urine Not Detected (NotDetected); Tricyclic Antidepressant,Urine Not Detected (NotDetected); Urn Cannabinoid Scrn Not Detected (NotDetected)
[2024-10-31] MEDS ORDERED: VENLAFAXINE HCL ER 150 MG CAP PO SCH (17:30)
[2024-10-31] MEDS: MELATONIN 5 MG TABLET PO SCH (17:39)
[2024-10-31] MEDS: ATORVASTATIN 20 MG TAB PO SCH (17:39)
[2024-10-31] MEDS: LORazepam 1 MG TAB PO STA (17:39)
[2024-10-31] MEDS: OLANZapine 5 MG TAB PO SCH (17:39)
[2024-10-31] MEDS: MIRTAZAPINE 15 MG TAB PO SCH (19:30)
[2024-11-01] MEDS: LOSARTAN 50 MG TAB PO SCH (08:02)
[2024-11-01] MEDS: VENLAFAXINE HCL ER 75 MG CAP PO SCH (08:02)
[2024-11-01] MEDS: LORazepam 1 MG TAB PO SCH (08:03)
[2024-11-01] MEDS: DOCUSATE 100 MG CAP PO SCH (08:03)
[2024-11-01] MEDS: CYANOCOBALAMIN 500 MCG TAB PO SCH (08:03)
[2024-11-01 08:08] VITALS: RESP 20
[2024-11-01] MEDS: DIVALPROEX 250 MG TABLET.DR PO SCH (13:03)
[2024-11-01 14:03] VITALS: TEMP 98.4
[2024-11-01 16:26] VITALS: BP 134/70; PULSE 70
== END 2024-11-01 16:25 ==
LOC: EC 10:38
DX: F03.90 Unspecified dementia, unspecified severity, without behavioral disturbance, psychotic disturbance, mood disturbance, and anxiety (principal); R41.82 Altered mental status, unspecified; Z11.52 Encounter for screening for COVID-19
CPT/HCPCS: 36415; 80053; 80306; 81001; 82075; 85025; 87635; 99285